=== PATIENT | male | born 1985 | race Caucasian/White ===

== ENCOUNTER 2017-07-23 17:53 | Emergency (ER) | payer MEDICARE, MEDICAID ==
[~2017-07-23] VITALS: Ht 172.7 cm; Wt 145.5 kg
[~2017-07-23 17:53] MED LIST: CYCL-1 PO; GUAI-652 PO
[2017-07-23] MEDS ORDERED: HYDR-565 PO (22:10)
[2017-07-23] MEDS ORDERED: ketorolac trometh inj. 60 MG/2 ML VIAL IM ONE (22:15)
[2017-07-23 22:26] VITALS: BP 153/108
== END 2017-07-23 22:27 | disposition home or self-care (01) ==
LOC: ER 17:54
DX: S13.4XXA Sprain of ligaments of cervical spine, initial encounter (principal); I10 Essential (primary) hypertension; J45.909 Unspecified asthma, uncomplicated; Z90.49 Acquired absence of other specified parts of digestive tract; F17.200 Nicotine dependence, unspecified, uncomplicated; F12.90 Cannabis use, unspecified, uncomplicated; Z56.0 Unemployment, unspecified; W01.0XXA Fall on same level from slipping, tripping and stumbling without subsequent striking against object, initial encounter; Y93.89 Activity, other specified; Y92.89 Other specified places as the place of occurrence of the external cause; Y99.8 Other external cause status
CPT/HCPCS: 70450; 72040; 72125; 96372; 99284; J1885

== ENCOUNTER 2019-08-20 16:13 | Emergency (ER) | payer MEDICARE, MEDICAID ==
[~2019-08-20] VITALS: Ht 172.7 cm; Wt 152.3 kg
[2019-08-20] MEDS ORDERED: aspirin 81mg tab.chew PO ONE (16:35)
[2019-08-20] MEDS ORDERED: ketorolac trometh. 30mg/ml inj. IV ONE (16:35)
[2019-08-20 17:02] LABS: BASOPHILS # (AUTO) 0.1 X10'3 (0-0.2); BASOPHILS % (AUTO) 1.1 % (0-1); EOSINOPHILS # (AUTO) 0.2 X10'3 (0-0.9); EOSINOPHILS % (AUTO) 2.1 % (0-6); HEMATOCRIT 45.9 % (42.0-52.0); HEMOGLOBIN 15.6 g/dl (14.0-17.9); LYMPHOCYTES # (AUTO) 2.5 X10'3 (1.1-4.8); LYMPHOCYTES % (AUTO) 28.5 % (21-51); MEAN CORPUSCULAR HEMOGLOBIN 29.6 PG (27.0-31.0); MEAN PLATELET VOLUME 7.7 FL (7.4-10.4); MONOCYTES # (AUTO) 0.8 X10'3 (0-0.9); NEUTROPHILS # (AUTO) 5.2 X10'3 (1.8-7.7); NEUTROPHILS % (AUTO) 59.3 % (42-75); PLATELET COUNT 333 X10'3 (140-440); RED BLOOD COUNT 5.28 X10'6 (4.70-6.10); RED CELL DISTRIBUTION WIDTH 12.6 % (11.5-14.5); WHITE BLOOD COUNT 8.7 X10'3 (4.5-11.0)
[2019-08-20 17:06] LABS: ALANINE AMINOTRANSFERASE 72 U/L (12-78); ALBUMIN 4.2 G/DL (3.4-5.0); ALBUMIN/GLOBULIN RATIO 1.1 (1.1-1.5); ALKALINE PHOSPHATASE 64 IU/L (46-116); ANION GAP 9 (8-16); ASPARTATE AMINO TRANSFERASE 34 U/L (10-37); BILIRUBIN,TOTAL 0.3 MG/DL (0.1-1.0); BLOOD UREA NITROGEN 23 MG/DL (7-18); BUN/CREATININE RATIO 18.7 (5.4-32.0); CHLORIDE 104 MMOL/L (99-107); CREATININE 1.23 MG/DL (0.60-1.10); GLUCOSE 110 MG/DL (70-104); POTASSIUM 3.7 MMOL/L (3.5-5.1); SODIUM 140 MMOL/L (135-145); TOTAL CARBON DIOXIDE 27.4 MMOL/L (24-32); TOTAL PROTEIN 8.1 G/DL (6.4-8.2); eGFR 67 ML/MIN
[2019-08-20 17:12] LABS: MAGNESIUM 1.9 MG/DL (1.5-2.4)
[2019-08-20] MEDS ORDERED: iohexol 350MG/ML 100ml bottle IV ONE (17:41)
--- NOTE | 2019-08-20 17:45 | NUR ---
out to ct
[2019-08-20] MEDS ORDERED: morphine 4 MG/ML inj SYRINge IV ONE (17:55)
[2019-08-20] MEDS ORDERED: ondansetron/PF 4mg/2ml inj IV ONE (17:55)
[2019-08-20 18:52] VITALS: BP 156/83
== END 2019-08-20 18:54 | disposition home or self-care (01) ==
LOC: ER 16:14
DX: R07.81 Pleurodynia (principal); R07.89 Other chest pain; I10 Essential (primary) hypertension; J45.909 Unspecified asthma, uncomplicated; F12.90 Cannabis use, unspecified, uncomplicated; Z90.49 Acquired absence of other specified parts of digestive tract; Z56.0 Unemployment, unspecified; Z88.5 Allergy status to narcotic agent; Z79.899 Other long term (current) drug therapy
CPT/HCPCS: 36415; 71045; 71275; 80053; 83735; 83880; 84484; 85025; 96374; 96375; 99285; J1885; J2270; J2405; Q9967; 93005

== ENCOUNTER 2021-05-15 16:45 | Emergency (ER) | payer MEDICARE, MEDICAID ==
[~2021-05-15] VITALS: Ht 172.7 cm; Wt 155.0 kg
[2021-05-15] MEDS ORDERED: ketorolac trometh inj. 60 MG/2 ML VIAL IM ONE (19:15)
[2021-05-15] MEDS ORDERED: orphenadrine citrate 60mg/2ml inj. IM ONE (19:15)
[2021-05-15] MEDS ORDERED: HYDROcodone/acetaminophen 5mg/325mg tablet PO ONE (19:15)
[2021-05-15] MEDS ORDERED: ondansetron 4mg rapidly disintigrating tab PO ONE (19:25)
[2021-05-15] MEDS ORDERED: CYCL-1 PO (19:28)
[2021-05-15] MEDS ORDERED: MELO-100 PO (19:28)
[2021-05-15 19:37] VITALS: BP 131/84
== END 2021-05-15 19:38 | disposition home or self-care (01) ==
LOC: ER 16:45
DX: M54.2 Cervicalgia (principal); I10 Essential (primary) hypertension; J45.909 Unspecified asthma, uncomplicated; F12.90 Cannabis use, unspecified, uncomplicated; Z90.49 Acquired absence of other specified parts of digestive tract; Z56.0 Unemployment, unspecified; Z88.8 Allergy status to other drugs, medicaments and biological substances; Z79.899 Other long term (current) drug therapy
CPT/HCPCS: 20552; 72050; 96372; 99284; J1885; J2360

== ENCOUNTER 2021-05-18 10:04 | Emergency (ER) | payer MEDICARE, MEDICAID ==
[~2021-05-18] VITALS: Ht 172.7 cm; Wt 156.8 kg
[~2021-05-18 10:04] MED LIST changes: +MELO-100 PO
[2021-05-18 10:34] VITALS: BP 159/111
[2021-05-18] MEDS ORDERED: BENZ-38 PO (10:49)
== END 2021-05-18 11:35 | disposition home or self-care (01) ==
LOC: ER 10:05
DX: U07.1 COVID-19 (principal); R05.9 Cough, unspecified; R50.9 Fever, unspecified; R07.89 Other chest pain; I10 Essential (primary) hypertension; J45.909 Unspecified asthma, uncomplicated; F12.90 Cannabis use, unspecified, uncomplicated; Z90.49 Acquired absence of other specified parts of digestive tract; Z56.0 Unemployment, unspecified; Z88.8 Allergy status to other drugs, medicaments and biological substances; Z79.899 Other long term (current) drug therapy
CPT/HCPCS: 99283

== ENCOUNTER 2024-11-08 09:12 | Day surgery (SDC) | payer MEDICARE, MEDICAID ==
[~2024-11-08] VITALS: Ht 172.7 cm; Wt 143.0 kg
[~2024-11-08 09:12] MED LIST changes: -CYCL-1 PO; -GUAI-652 PO; +HYDR-3964 PO; -MELO-100 PO
[2024-11-08 09:56] VITALS: BP 128/85; PULSE 79; RESP 17
[2024-11-08] MEDS ORDERED: propofol inj 20 ML IV ONE ×3 (12:19)
[2024-11-08 12:30] VITALS: BP 121/82; PULSE 84; RESP 15; O2SAT 97
[2024-11-08 12:40] VITALS: BP 131/86; PULSE 80; RESP 15; O2SAT 98
[2024-11-08 12:49] VITALS: BP 146/90; PULSE 77; RESP 13; O2SAT 96
[2024-11-08 13:00] VITALS: BP 142/88; PULSE 67; RESP 14; O2SAT 97
[2024-11-08 13:10] VITALS: BP 142/88; PULSE 97; RESP 67; O2SAT 98
== END 2024-11-08 13:10 | disposition home or self-care (01) ==
LOC: GI LAB 09:12
PROVIDERS: ATTEND Internal Medicine Gastroenterology
DX: K92.1 Melena (principal); Z88.8 Allergy status to other drugs, medicaments and biological substances
CPT/HCPCS: 45378; A4620; J2704; J7030; Z7512

== ENCOUNTER 2024-11-22 08:04 | Day surgery (SDC) | payer MEDICARE, MEDICAID ==
[~2024-11-22] VITALS: Ht 172.7 cm; Wt 154.5 kg
[2024-11-22 08:31] VITALS: BP 146/84; PULSE 71; RESP 16
[2024-11-22] MEDS ORDERED: fentaNYL/PF 50MCG/1 ML 2ML syringe ONE (09:37)
[2024-11-22] MEDS ORDERED: midazolam 1 mg/ML 2ml injection ONE ×2 (09:41→09:42)
[2024-11-22] MEDS ORDERED: propofol inj 20 ML IV ONE (09:42)
[2024-11-22] MEDS ORDERED: simethicone 40mg/0.6ml oral drops 30ml ONE (09:49)
[2024-11-22 10:01] VITALS: BP 119/62; PULSE 73; RESP 12; O2SAT 94
[2024-11-22 10:11] VITALS: BP 131/71; PULSE 72; RESP 18; O2SAT 93
[2024-11-22 10:21] VITALS: BP 135/72; PULSE 77; RESP 13; O2SAT 92
[2024-11-22 10:26] VITALS: BP 128/74; PULSE 75; RESP 14; O2SAT 96
== END 2024-11-22 10:45 | disposition home or self-care (01) ==
LOC: GI LAB 08:04
PROVIDERS: ATTEND Internal Medicine Gastroenterology
DX: K21.00 Gastro-esophageal reflux disease with esophagitis, without bleeding (principal); K31.89 Other diseases of stomach and duodenum; Z88.8 Allergy status to other drugs, medicaments and biological substances
CPT/HCPCS: 43239; A4620; J2250; J2704; J3010; J7030; Z7512; 88305; 88342